=== PATIENT | female | born 1950 | race Caucasian/White ===

== ENCOUNTER 2022-09-27 06:22 | Day surgery (SDC) | payer MEDICARE ==
[2022-09-27] MEDS ORDERED: Propofol 200 MG/20 ML SDV ONE ×3 (07:06→07:56)
[2022-09-27] MEDS ORDERED: fentaNYL 50 MCG/ML SDV ONE (07:07)
[2022-09-27] MEDS ORDERED: Lactated Ringers 1,000 ML IV SCH ×2 (07:15→10:00)
[2022-09-27 08:57] VITALS: BP 131/80; PULSE 71
== END 2022-09-27 09:11 | disposition home or self-care (01) ==
LOC: JP.SDS 06:22
PROVIDERS: ATTEND Student in an Organized Health Care Education/Training Program
DX: Z12.11 Encounter for screening for malignant neoplasm of colon (principal); K57.30 Diverticulosis of large intestine without perforation or abscess without bleeding; Z88.2 Allergy status to sulfonamides; Z79.899 Other long term (current) drug therapy
CPT/HCPCS: J2704; J3010; J7120